=== PATIENT | female | born 1940 | race Caucasian/White ===

== ENCOUNTER 2022-12-16 15:06 | Outpatient (CLI) | payer MEDICARE, SELFPAY ==
--- NOTE | ~2022-12-16 | CT_ITS ---
EXAMINATION: CT brain wo con DATE: 12/16/2022 15:35 INDICATION: Fall. Concussion. Slow to respond. TECHNIQUE: Computed tomography (CT) of the head was performed without intravenous contrast. The mA wa s adjusted according to patient size. Iterative reconstruction technique was employed. Exam dose: 60 5.33 mGy-cm total exam DLP. COMPARISON: None FINDINGS: Bilateral vertebral artery calcifications. Prominent bilateral carotid siphon internal gould tid artery calcifications. There is nonspecific diminished attenuation of the cerebral white matter, likely due to chronic small vessel ischemic changes. Moderate central and cortical cerebral and mild cerebellar volume loss. No intracranial mass lesion or hemorrhage, midline shift or mass effect. No cerebrovascular accident is detected. No subdural or epidural hematoma. No fracture or bone destruction of the cranial vault. The mastoid air cells and included paranasal sinuses are normally developed and aerated with the exce ption of one opacified right ethmoid air cell.. IMPRESSION: Cerebral atherosclerosis and chronic small vessel ischemic changes of the cerebral white matter Cerebral and cerebellar atrophy No acute intracranial finding or skull fracture Reviewed, dictated and finalized at [facility]. Reviewed, dictated and finalized at [facility].
== END 2022-12-16 15:07 | disposition home or self-care (01) ==
PROVIDERS: PCP Internal Medicine; Visit Provider Nurse Practitioner Family
DX: S06.0X0A Concussion without loss of consciousness, initial encounter (principal); I67.2 Cerebral atherosclerosis
CPT/HCPCS: 70450

== ENCOUNTER 2023-12-28 10:36 | Emergency (ER) | payer MEDICARE, SELFPAY ==
--- NOTE | ~2023-12-28 | CT_ITS ---
EXAMINATION: CT brain wo con DATE: 12/28/2023 11:29 INDICATION: Altered mental status and confusion TECHNIQUE: Computed tomography (CT) of the head was performed without intravenous contrast. Sagittal and coronal reconstructions were performed. The mA was adjusted according to patient size. Iterative reconstruction technique was employed. The dose-length product was 756.67 mGy-cm. COMPARISON: head CT dated 06/07/2023 FINDINGS: Mild scattered motion artifact which mildly limits evaluation. No acute intracranial hemorrhage, acut e infarction or abnormal extra axial fluid collection. There is moderate scattered white matter hypoa ttenuation consistent with chronic small vessel ischemic disease. Symmetric prominence of the sulci a nd ventricles consistent with mild to moderate age-appropriate diffuse cerebral volume loss. No mass/ mass effect. Changes of left intraocular lens replacement. The orbits and mastoid air cells are ami l. Mild mucosal thickening in the bilateral ethmoid sinuses. Intracranial calcified cerebral atherosc lerosis is noted. IMPRESSION: 1. Stable appearance of age-related changes as detailed above. No acute intracranial process. Reviewed, dictated and finalized at [facility]. IMPRESSION: 1. Stable appearance of age-related changes as detailed above. No acute intracr anial process.
--- NOTE | ~2023-12-28 | XR_ITS ---
EXAMINATION: XR chest 1V portable DATE: 12/28/2023 11:29 INDICATION: Chills and fever TECHNIQUE: frontal view of the chest was obtained. COMPARISON: Chest radiograph dated 06/07/2023 FINDINGS: Calcified nodule at the right lung base consistent with old granulomatous disease. Mild reticular op[place] at the bilateral lung bases. No pleural effusion or pneumothorax. Heart size is normal. Mild l umbar levoscoliosis with at least moderate spondylosis. IMPRESSION: 1. Mild reticular opacities at the bilateral lung bases which could represent chronic interstitial ning ng disease or atelectasis, mild pulmonary edema or less likely pneumonia in the acute setting. Reviewed, dictated and finalized at location [facility]. IMPRESSION: 1. Mild reticular opacities at the bilateral lung bases which could represent c hronic interstitial lung disease or atelectasis, mild pulmonary edema or less l ikely pneumonia in the acute setting.
[2023-12-28 10:36] VITALS: BP 151/76; PULSE 88; RESP 18; TEMP 36.2; O2SAT 100
--- NOTE | 2023-12-28 10:39 | ED.AMS ---
HPI - Altered Mental Status General Chief Complaint: Altered Mental Status Stated Complaint: ALTERED MENTAL STATUS Time Seen by Provider: 12/28/23 10:38 Source: patient Mode of arrival: ambulatory Limitations: no limitations History of Present Illness HPI narrative: 83-year-old female with a history of dementia presents to the ED with a 2 day history of -- decreased urine output -- altered mental status. The patient is disoriented. No focal neuro deficits. -- Chills this morning MD complaint: confusion Onset (ago): day(s) ( 2 days) Timing confirmed by: spouse Severity: moderate Consistency of symptoms: waxing and waning Context: other ( history of dementia) Associated symptoms: denies other symptoms and incontinence Related Data Home Medications Medication Instructions Recorded Confirmed donepezil 5 mg tablet 5 mg PO DAILY 12/28/23 12/28/23 losartan 50 mg tablet 50 mg PO DAILY 12/28/23 12/28/23 mirabegron 25 mg tablet,extended 25 mg PO DAILY 12/28/23 12/28/23 release 24 hr omeprazole 20 mg capsule,delayed 20 mg PO DAILY 12/28/23 12/28/23 release rivastigmine 9.5 mg/24 hour 1 patch topical DAILY 12/28/23 12/28/23 transdermal patch sertraline 100 mg tablet 100 mg PO DAILY 12/28/23 12/28/23 Allergies Allergy/AdvReac Type Severity Reaction Status Date / Time No Known Allergies Allergy Unknown Verified 12/28/23 10:50 Review of Systems Review of Systems: All systems reviewed & are unremarkable except as noted in HPI and below Constitutional: Constitutional: Reports as per HPI, Reports no additional constitutional complaints and Reports chills Eyes: Eyes: Reports as per HPI and Reports no additional eye complaints ENT: Reports system reviewed and no additional complaints, except as documented and Reports as per HPI Cardiovascular: Cardiovascular: Reports as per HPI and Reports no additional cardiovascular complaints Respiratory: Respiratory: Reports as per HPI and Reports no additional respiratory complaints Gastrointestinal: Gastrointestinal: Reports as per HPI and Reports no additional gastrointestinal complaints Comments: decreased appetite Genitourinary: Comments: decreased urine output Musculoskeletal: Musculoskeletal: Reports no additional musculoskeletal complaints Integumentary/Breasts: Skin/Breast: Reports system reviewed and no additional complaints, except as docu Neurologic: Reports system reviewed and no additional complaints, except as documented and Reports as per HPI Psychiatric: Comments: confusion and disorientation. paranoid ideation Endocrine: Endocrine: Reports no additional endocrine complaints and Reports as per HPI Hematologic/Lymphatic: Hematologic/Lymphatic: Reports no additional hematologic/lymphatic complaints and Reports as per HPI Allergic/Immunologic: Allergic/Immunologic: Reports no additional allergic/immunologic complaints and Reports as per HPI [facility]LY [facility] Past Medical History Medical History (Updated 12/28/23 @ 13:15 by Washington Carranza MD) Dementia Urinary incontinence Exam Const: General: no acute distress Orientation/consciousness: patient oriented x3 ( confused) Limitations: altered mental status HENMT: Head: normal to inspection Ears: external ears normal Face/Nose/Sinus: Normal external nose present Face and sinus: normal facial exam Mouth: Yes Normal oral and palatal mucosa present Throat: posterior oropharynx normal Eyes: Conjunctivae: conjunctivae normal Pupils: Equal, round and reactive pupils present EOM: EOMs intact bilaterally Direct Ophthalmoscopy: no photophobia Neck: Neck: normal visual inspection and no lymphadenopathy Chest: Chest palpation & inspection: normal inspection of the chest Resp: Effort & Inspection: normal respiratory effort Auscultation: clear to auscultation bilaterally Cardio: Rate: regular rate Rhythm: regular rhythm GI: GI Palp: Yes Soft to palpation Auscultation: normal bowel
[2023-12-28 11:00] VITALS: BP 166/71; PULSE 80; RESP 18; O2SAT 98
[2023-12-28 11:35] LABS: Basophils Absolute Auto 0.06 K/mm3 (0.00-0.10); Basophils Percent Auto 0.7 % (0.0-1.0); Eosinophils Absolute Auto 0.12 K/mm3 (0.02-0.50); Eosinophils Percent Auto 1.4 % (1.0-6.0); Hematocrit 40.2 % (35.0-42.0); Immature Granulocyte Absolute 0.03 K/mm3 (0.00-0.00); Immature Granulocyte Percent A 0.4 % (0.0-0.0); Lymphocytes Absolute Auto 1.88 K/mm3 (1.10-4.50); Lymphocytes Percent Auto 22.7 % (18.0-42.0); Mean Corpuscular HGB Conc 32.3 g/dL (32-36); Mean Corpuscular Hemoglobin 29.5 pg (27.0-31.0); Mean Corpuscular Volume 91.4 fL (78.0-102.0); Mean Platelet Volume 8.8 fl (9.2-11.8); Monocytes Absolute Auto 0.39 K/mm3 (0.10-0.90); Monocytes Percent Auto 4.7 % (2.0-11.0); Neutrophils Percent Auto 70.1 % (50.0-70.0); Platelet Count Result 250 K/mm3 (150-420); Red Cell Distribution Width 14.9 % (11.6-14.4); White Blood Count 8.3 K/mm3 (4.8-10.8)
[2023-12-28 12:00] VITALS: BP 174/70; PULSE 76; RESP 18; O2SAT 97
--- NOTE | 2023-12-28 12:14 | PC.NURSE ---
PT IS SITTING UP ON STRETCHER WITH FAMILY AT BEDSIDE. PT IS DRINKING WATER, HAS DRANK 8OZ OJ. WARM BLANKETS HAVE BEEN PROVIDED. PT DENIES ANY NEEDS OR COMPLAINTS. FAMILY IS AWARE OF NEED FOR URINE SPECIMEN COLLECTION. WILL CONTINUE TO MONITOR.
--- NOTE | 2023-12-28 12:19 | PC.NURSE ---
Covid culture sent to lab
[2023-12-28 12:36] LABS: Lactic Acid Reflex 1.5 mmol/L (0.7-2.0)
[2023-12-28 12:37] LABS: Alanine Aminotransferase 52 U/L (6-35); Albumin Level 4.2 g/dL (3.5-5.1); Alkaline Phosphatase 81 U/L (38-126); Anion Gap 8 mmol/L (4-12); Aspartate Amino Transferase 76 U/L (14-36); Blood Urea Nitrogen 22 mg/dL (7-17); Calcium 9.9 mg/dL (8.4-10.2); Carbon Dioxide 26 mmol/L (22-30); Chloride 104 mmol/L (98-107); Estimated CRCL calculation 26 ml/min; Estimated Glomerular Filt Rate 53; Glucose 145 mg/dL (65-110); Lipase 60 U/L (23-300); Osmolality Calculated 292 mOsm/kg (285-295); Potassium 3.9 mmol/L (3.4-5.0); Sodium 138 mmol/L (137-145)
[2023-12-28 12:39] LABS: Add Urine Microscopic? YES; Appearance Urine Cloudy (Clear); Bilirubin Urine Negative (Negative); Blood Urine Trace-intact (Negative); Color Urine Light Yellow (Yellow); Glucose Urine UA Negative (Negative); Ketones Urine Negative (Negative); Leukocyte Esterase Ur 1+ LEU/UL (Negative); Nitrate Urine Negative (Negative); Protein Urine 2+ (Negative); Urobilinogen Urine 0.2 mg/dL (0.2-1.0); pH Urine 8.5 (5.0-8.0)
[2023-12-28 12:44] LABS: RBC Urine 0-2 /hpf (0-2)
[2023-12-28 12:45] LABS: Bacteria Urine 2+ /hpf; Squamous Epithelial Cell Urine Few /hpf (Few)
[2023-12-28 12:49] LABS: Troponin I < 0.012 ng/mL (0.000-0.034)
[2023-12-28 13:00] VITALS: BP 178/70; PULSE 76; RESP 18; O2SAT 99
[2023-12-28 13:05] LABS: SARS-CoV-2 RNA PCR Negative (Negative)
[2023-12-28 13:09] LABS: Influenza A QL RT-PCR Negative (Negative); Influenza B QL RT-PCR Negative (Negative); RSV RNA, RT-PCR Negative (Negative)
[2023-12-28] MEDS: LACTATED RINGERS 500 ML 999 ML IV CONT (13:24)
[2023-12-28 14:00] VITALS: BP 172/71; PULSE 74; RESP 18; O2SAT 97
[2023-12-28 14:20] VITALS: BP 181/71; PULSE 78; RESP 18; O2SAT 98
--- NOTE | 2023-12-30 12:58 | PC.NURSE ---
FINAL URINE CULTURE REPORT: MIXED GENITAL CON ISOLATED, NO FURTHER ORGANISM IDENTIFIED. NO FURTHER ACTION OR TREATMENT NEEDED.
== END 2023-12-28 14:20 | disposition home or self-care (01) ==
PROVIDERS: Emergency Provider Internal Medicine Critical Care Medicine; PCP Internal Medicine
DX: R74.01 Elevation of levels of liver transaminase levels (principal); N30.00 Acute cystitis without hematuria; R41.0 Disorientation, unspecified; F03.90 Unspecified dementia, unspecified severity, without behavioral disturbance, psychotic disturbance, mood disturbance, and anxiety; Z79.899 Other long term (current) drug therapy; Z20.822 Contact with and (suspected) exposure to COVID-19
CPT/HCPCS: 36415; 70450; 71045; 80053; 81001; 83605; 83690; 84443; 84484; 85025; 87086; 87088; 87637; 96365; 99284; J0696; J7120

== ENCOUNTER 2024-01-06 15:40 | Outpatient (CLI) | payer MEDICARE, SELFPAY ==
[2024-01-06 16:05] LABS: Add Urine Microscopic? YES; Appearance Urine Clear (Clear); Bilirubin Urine Negative (Negative); Blood Urine Trace-intact (Negative); Color Urine Light Yellow (Yellow); Glucose Urine UA Negative (Negative); Ketones Urine Negative (Negative); Leukocyte Esterase Ur Trace (Negative); Nitrate Urine Negative (Negative); Protein Urine 2+ (Negative); Specific Grav Ur 1.025 (1.010-1.020); Urobilinogen Urine 0.2 mg/dL (0.2-1.0)
[2024-01-06 16:29] LABS: Bacteria Urine 1+ /hpf; RBC Urine 0-2 /hpf (0-2); Squamous Epithelial Cell Urine Few /hpf (Few); WBC Urine 0-3 /hpf (0-3)
== END 2024-01-06 15:41 | disposition home or self-care (01) ==
PROVIDERS: PCP Internal Medicine; Visit Provider Internal Medicine
DX: N39.0 Urinary tract infection, site not specified (principal)
CPT/HCPCS: 81001; 87086

== ENCOUNTER 2024-01-20 10:22 | Outpatient (CLI) | payer MEDICARE, SELFPAY ==
--- NOTE | ~2024-01-20 | US_ITS ---
Limited Abdominal Sonogram: Real-time sonographic imaging of the right upper quadrant was performed. Clinical History: Abnormal liver enzymes Findings: The liver appears normal with no evidence of mass lesion or bile duct dilatation. Main por gianna vein demonstrates normal direction of flow. The gallbladder is well distended, and appears normal with no evidence of gallstone or wall thickening. The common bile duct measures 5 mm. The visualize d pancreas, aorta, and IVC are unremarkable. Impression: No significant abnormality seen. Reviewed, dictated and finalized at location [facility]. ADJUSTER Impression: No significant abnormality seen.
== END 2024-01-20 10:23 | disposition home or self-care (01) ==
LOC: CHSIMG 10:23
PROVIDERS: PCP Internal Medicine; Visit Provider Internal Medicine
DX: R94.5 Abnormal results of liver function studies (principal)
CPT/HCPCS: 76705

== ENCOUNTER 2024-01-25 19:11 | Outpatient (NON) | payer MEDICARE, SELFPAY ==
[2024-01-25 19:37] LABS: Alanine Aminotransferase 52 U/L (14-59); Albumin Level 3.5 g/dL (3.4-5.0); Alkaline Phosphatase 91 U/L (46-116); Anion Gap 9 mmol/L (4-12); Aspartate Amino Transferase 47 U/L (15-37); Bilirubin,Total 0.5 mg/dL (0.00-1.00); Blood Urea Nitrogen 18 mg/dL (7-18); Calcium 9.4 mg/dL (8.5-10.1); Carbon Dioxide 28 mmol/L (21-32); Chloride 103 mmol/L (98-108); Estimated Glomerular Filt Rate 60; Glucose 126 mg/dL (70-99); Osmolality Calculated 293 mOsm/kg (285-295); Potassium 3.6 mmol/L (3.5-5.1); Sodium 140 mmol/L (136-145); Total Protein 6.9 g/dL (6.4-8.2)
== END 2024-01-25 19:12 | disposition home or self-care (01) ==
LOC: CHSLAB 19:12
PROVIDERS: PCP Internal Medicine; Visit Provider Internal Medicine
DX: R94.5 Abnormal results of liver function studies (principal)
CPT/HCPCS: 36415; 80053